=== PATIENT | male | born 1980 | race Caucasian/White ===

== ENCOUNTER 2022-10-06 10:31 | Outpatient (REF) | payer OTHER, SELFPAY ==
[2022-10-06 13:41] LABS: Hematocrit 47.1 % (42.0-52.0); Hemoglobin 15.5 g/dl (14.0-18.0); Mean Corpuscular HGB Conc 32.9 g/dl (31.0-36.0); Mean Platelet Volume 10.8 fL (9.4-12.4); Platelet Count 281 X10*3/uL (160-400); Red Blood Count 5.35 X10*6/uL (4.60-5.80); Red Cell Distribution Width 13.1 % (11.0-16.0); White Blood Count 7.5 X10*3/uL (4.8-10.8)
[2022-10-06 14:06] LABS: Alanine Aminotransferase 106 U/L (0-40); Albumin Level 4.4 g/dL (3.5-5.0); Alkaline Phosphatase 85 U/L (39-117); Anion Gap 10 (12-20); Aspartate Amino Transferase 28 U/L (5-37); Bilirubin Total 0.8 mg/dL (0.0-1.0); Blood Urea Nitrogen 9 mg/dL (9-16); Calcium 9.5 mg/dL (8.4-10.2); Carbon Dioxide 29 mmol/L (22-29); Chloride 107 mmol/L (96-108); Cholesterol 164 mg/dL; Estimated Glomerular Filt Rate > 60; Glucose Fasting 92 mg/dL (60-99); HDL Cholesterol 57 mg/dL; LDL Cholesterol Calculated 97 mg/dl; Potassium 4.6 mmol/L (3.3-5.1); Sodium 141 mmol/L (135-145); Total Protein 6.7 g/dL (6.5-8.0); Triglycerides 52 mg/dL
== END 2022-10-06 10:32 | disposition home or self-care (01) ==
LOC: HO.WFDLDS 10:31
PROVIDERS: Visit Provider Nurse Practitioner Family
DX: Z00.00 Encounter for general adult medical examination without abnormal findings (principal); R42 Dizziness and giddiness
CPT/HCPCS: 36415; 80053; 80061; 85027

== ENCOUNTER 2023-10-10 10:21 | Outpatient (AMB) | payer OTHER, SELFPAY ==
--- NOTE | 2023-10-10 10:24 | A.OFFPC_ITS ---
Vital Signs 10/10/23 10:25 Height 6 ft Weight 231 lb 8 oz BMI 31.4 BP 108/80 Blood Pressure Location Rt brachial Position Sitting Respiration 13 Pulse 79 Pulse Source Pulse Oximeter Temp 97.6 F Temp Source Temporal Artery Scan Pulse Oximetry (%) 99 Oxygen Delivery Method Room Air Intake Visit Reasons: Annual PE Dress Marker Required: No Accompanied by: Self / Same As Patient Allergies No Known Allergies Allergy (Verified 10/10/23 10:56) Medication List - Last Reconciled 10/10/23 by Jin Gomez CNP hydroxyzine HCl 25 mg PO TID PRN 30 days Tobacco use date assessed: 10/10/23 Dental Screening Dental Screen Date: 10/10/23 Did you have a dental visit in the last 12 months?: Yes Did you have a dental problem in the last 6 months where you did not have access to dental care?: No Was dental information given to patient?: Patient has dentist HPI HPI Comments History of Present Illness Details 43-year-old male presents for an extende d physical exam. He prescribed hydroxyzine for anxiety a year ago which he notes he took for a short time and stopped. He did not follow-up as planned 1 month from starting the medication. He notes controlled anxiety and depression symptoms and states that he is able to manage his symptoms by taking a break when they start. He states that his work situation has improved. He states that he did not follow up to connect with a therapist and does not want therapy at this time. He offers no complaints and denies acute symptoms at this time. He states that he is not up-to-date on the flu vaccine and declines the vaccine at this time. Nonsmoker, drink alcohol occasionally, no recreational drug use. 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 1. Little interest or pleasure in doing things: more than half the days 2. Feeling down, depressed, or hopeless: not at all 3. Trouble falling or staying asleep, or sleeping too much: several days 4. Feeling tired or having little energy: more than half the days 5. Poor appetite or overeating: more than half the days 6. Feeling bad about yourself - or that you are a failure or have let yourself or your family down: not at all 7. Trouble concentrating on things, such as reading the newspaper or watching television: nearly every day 8. Moving or speaking so slowly that other people could have noticed. Or the opposite - being so fidgety or restless that you have been moving around a lot more than usual: not at all 9. Thoughts that you would be better off or of hurting yourself in some way: not at all Total score: 10 Depression Screening Interpretation: Positive Depression Screening Follow-up: Existing condition and Declines treatment Depression Screening Done: Yes 91177 - PHQ-9 Billing: Yes Source: Developed by Drs. Tim Simeon, Caity Forman, Chris Trent and colleagues, with an educational charity from [employer]. Thrive Questionnaire Date Thrive assessed: 10/10/23 I am a: Patient What is your living situation today?: I have a steady place to live Within the past 12 months, did the food you bought not last and you didn't have the money to get more?: Never true Within the past 12 months, did you worry whether your food would run out before you got money to buy more?: Never true Do you have trouble paying for medicines?: No Do you have trouble getting transportation to medical appointments?: No Do you have trouble paying your heating and electricity bill?: No Do you have trouble taking care of your child, family member or friend?: No Do you have trouble with day-to-day activities such as bathing, preparing meals, shopping, managing finances, etc.?: No Are you currently unemployed and looking for a job?: No Are you interested in more education?: No Please select the resources that you would like help with: None Currently or been in a relationship where the following occur: no concerns reported THRIVE Score: 0 AUDIT C Alcohol Use Questionnaire (AUDIT-C) 1. How often do you have a drink containing alcohol?: Monthly or less 2. How many drinks containing alcohol do you have on a typical day when you are drinking?: 1 or 2 3. How often do you have six or more drinks on one occasion?: Never Total Score: 1 KAVON-7 AMB Questionnaire KAVON-7 Date KAVON - 7 assessed: 10/10/23 Feeling nervous, anxious, or on edge: 1 = Several days Not being able to stop or control worryin = More than half the days Worrying too much about different things: 3 = Nearly every day Trouble relaxin = More than half the days Being so restless that it is hard to sit still: 1 = Several days Becoming easily annoyed or irritable: 3 = Nearly every day Feeling afraid as if something awful might happen: 2 = More than half the days Total KAVON-7 score (0-4 normal; 5-9 mild; 10-14 moderate; 15-21 severe): 14 Source: Developed by Drs. Tim Simeon, Caity Forman, Chris Trent and colleagues, with an educational charity from [employer]. KAVON-7 Assessment Billing KAVON-7 Assessment Tool: KAVON-7 Assessment 56735 Review of Systems Const Details: Denies chills, Denies fatigue, Denies fever(s), Denies headache(s) and Denies weakness HEENT Denies change in vision, Denies dizziness, Denies headache(s), Denies hearing loss, Denies nasal congestion, Denies sinus pain, Denies sinus pressure and Denies sore throat Card Denies chest pain, Denies lightheadedness, Denies dyspnea and Denies other (palpitations) Resp Denies cough, Denies dyspnea and Denies wheezing GI Denies abdominal pain, Denies melena, Denies hematochezia, Denies change in cynthia wel habits, Denies dyspepsia and Denies nausea Denies hematuria and Denies dysuria Musc Denies abnormal gait, Denies myalgias, Denies arthralgias, Denies numbness and Denies tingling Skin/Breast Denies rash, Denies unusual bruising and Denies wounds Neuro Denies abnormal gait, Denies dizziness, Denies headache(s), Denies memory loss, Denies numbness, Denies Sensory deficit (Neuro), Denies tingling and Denies weakness Psych Denies anxiety, Denies depression and Denies memory loss Endo Denies cold intolerance, Denies fatigue, Denies heat intolerance, Denies polydipsia and Denies polyuria Jann/Lymph Denies easy bleeding and Denies easy bruising Aller/Immun Denies wheezing Physical exam (Primary Care) Vital Signs: Last Vital Signs Temp 97.6 F 10/10/23 10:25 Pulse 79 10/10/23 10:25 Resp 13 10/10/23 10:25 BP 108/80 10/10/23 10:25 Pulse Ox 99 10/10/23 10:25 Oxygen Delivery Method Room Air 10/10/23 10:25 BMI result Body Mass Index 31.4 Tobacco/Smoking Status: Tobacco use Status Tobacco use date assessed 10/10/23 10/10/23 10:36 Patient Tobacco Use Status Former Tobacco user 10/10/23 10:36 Tobacco use type Cigarette 10/10/23 10:36 e-Cigarette/Vaping Use Never Used 10/10/23 10:36 PHQ-9: PHQ-9 Score PHQ-9: Total score 10 10/10/23 10:36 Depression Screening Interpretation: Positive Depression Screening Follow-up: Existing condition and Declines treatment Thrive Assessment: Date of Thrive Assessment Date Thrive assessed 10/10/23 10/10/23 10:36 Currently or been in a relationship where the following occur: no concerns reported Const Other: General: no acute distress, well developed, alert and awake Nutritional Appearance: well nourished Orientation/consciousness: patient oriented x3 HENMT Head: Yes normocephalic and Yes atraumatic Ears: hearing grossly normal bilaterally and TM's normal bilaterally General nose exam: Normal external nose present and Normal nares present Mouth: Normal oral and palatal mucosa present and moist mucous membranes Teeth and gingiva: dentition normal Throat: Yes oropharynx normal Eyes Pupils: Equal, round and reactive pupils present and Pupil accommodation reflex normal EOM: EOMs intact bilaterally Neck Neck: Yes normal visual inspection, Yes no lymphadenopathy and Yes trachea midline Thyroid: Thyroid normal Carotids: no bruits Lymphatic: no lymphadenopathy noted Chest Chest palpation & inspection: normal inspection of the chest Resp Effort & Inspection: normal respiratory effort Auscultation: clear to auscultation bilaterally Cardio Rate: regular rate Rhythm: regular rhythm Heart sounds: S1 normal heart sound present, S2 normal heart sound present, no gallops, no murmurs and no rubs Bruits: no abdominal aortic bruits and no carotid bruits GI Palpation (GI): No Abdominal aortic bruit present, Soft to palpation, nontender, No hepatosplenomegaly present and No Rebound tenderness present Auscultation: normal bowel sounds General: Yes no CVA tenderness Back/Spine/Pelvis Back: no CVA tenderness Cervical Spine: cervical ROM normal and No Cervical spine tenderness Thoracic/Lumbar Spine: thoraco-lumbar ROM normal, No pain with thoraco-lumbar ROM, No thoracic spinal tenderness and No lumbar spinal tenderness Skin General: warm and dry. Normal skin color. Normal skin turgor Lesions: no lesions Rashes: no rashes Trauma: no lacerations or abrasions Wounds: no wounds Nails: normal Neuro General: patient oriented x3, gait normal and CN's II-XI intact bilaterally Cranial nerves: Yes Equal, round and reactive pupils present Cognition (Neuro): normal cognition Gait exam (Neuro): Normal gait present Motor exam (neuro): 5/5 motor strength present throughout Sensory Exam: No Sensory deficit (Neuro) Deep tendon reflexes (DTR's): Right patellar reflex intensity grade: 2+ and Left patellar reflex intensity grade: 2+ Extrem General: Yes normal to inspection, No edema and No calf tenderness Psych Appearance: grossly normal Affect: normal affect Attitude: cooperative Thought process: Normal thought process present Assessment and Plan Assessment & Plan (1) Normal physical examination, routine: Code(s): Z00.00 - Encounter for general adult medical examination without abnormal findings Plan: No significant physical restrictions or limitations noted Healthy diet and routine exercise encouraged Advised to get routine blood work done and follow-up in 2-3 weeks for telehealth visit for labs review Return sooner with symptoms or concerns Verbalized understanding and agreed with treatment plan (2) Anxiety and depression: Code(s): F41.9 - Anxiety disorder, unspecified; F32.A - Depression, unspecified Plan: Reports controlled anxiety and depression symptoms without medication management. He notes that he is able to manage his symptoms PHQ-9 and KAVON-7 scores revealed moderate depression and anxiety He declines psychotherapy at this time Healthy diet and routine exercise encouraged Informed that he may contact his PCP if he changes mind on medication management or referral to a therapist Follow-up with symptoms or concerns Verbalized understanding and agreed with treatment plan (3) Obesity (BMI 30-39.9): Code(s): E66.9 - Obesity, unspecified Plan: He currently weighs 231 lb, BMI is 31.4 Declines referral to dispatch machine runner/dietitian or weight management and notes that he will work on weight management Healthy diet and routine exercise encouraged Advised to inform his PCP if he changes mind on referral to dispatch machine runner or weight management Follow-up with symptoms or concerns Verbalized understanding and agreed with treatment plan (4) Laboratory tests ordered as part of a complete physical exam (CPE): Code(s): Z00.00 - Encounter for general adult medical examination without abnormal findings Plan: Fasting labs ordered as part of a complete physical exam. Advised to fast for at least 10 hours before getting labs drawn. May drink water Verbalized understanding and agreed with treatment plan. Orders: Orders Comprehensive [place]. Panel Fast Today Z00.00 - Encounter for general adult medical examination without abnormal findings TSH reflex Free T4 Today Z00.00 - Encounter for general adult medical examination without abnormal findings Complete Blood Count Auto Diff Today Z00.00 - Encounter for general adult medical examination without abnormal findings Lipid Panel Today Z00.00 - Encounter for general adult medical examination without abnormal findings UA CC w/rflx Micro + Cult Today Z00.00 - Encounter for general adult medical examination without abnormal findings Medications: Discontinued hydroxyzine HCl Discontinued Reason: Patient no longer taking 25 mg PO TID 30 days PRN 90 tabs 1RF anxiety Coding Level of Care Code Est Pt Prev Care 40-64y(10343) Diagnoses Normal physical examination, routine Z00.00 Anxiety and depression F41.9; F32.A Obesity (BMI 30-39.9) E66.9 Laboratory tests ordered as part of a complete physical exam (CPE) Z00.00 Additional Codes KAVON-7 Assessment Billing - KAVON-7 Assessment Tool: KAVON-7 Assessment 84857 ([id number])
[2023-10-10 10:25] VITALS: BP 108/80; PULSE 79; RESP 13; TEMP 36.4; O2SAT 99; BMI 31.4
== END 2023-10-10 12:38 | disposition home or self-care (01) ==
PROVIDERS: PCP Nurse Practitioner Family; Visit Provider Nurse Practitioner Family
DX: Z00.00 Encounter for general adult medical examination without abnormal findings (principal); E66.9 Obesity, unspecified; F41.9 Anxiety disorder, unspecified; Z68.30 Body mass index [BMI] 30.0-30.9, adult; F32.A Depression, unspecified
CPT/HCPCS: 99396

== ENCOUNTER 2023-11-02 07:55 | Outpatient (REF) | payer OTHER, SELFPAY ==
[2023-11-02 11:26] LABS: MANUAL DIFF FLAG NO
[2023-11-02 11:37] LABS: Basophils Percent Auto 0.3 % (0-2); Eosinophils Absolute Auto 0.2 X10*3/uL (0.0-0.4); Eosinophils Percent Auto 3.3 % (0-4); Hematocrit 43.9 % (42.0-52.0); Hemoglobin 14.7 g/dl (14.0-18.0); Imm Gran Abs Auto 0.02 X10*3/uL (0.00-0.03); Imm Gran Pct Auto 0.3 % (0.0-0.4); Lymphocytes Absolute Auto 1.5 X10*3/uL (1.2-4.9); Lymphocytes Percent Auto 24.3 % (20-40); Mean Corpuscular HGB Conc 33.5 g/dl (31.0-36.0); Mean Corpuscular Hemoglobin 29.6 pg (27.0-33.0); Mean Corpuscular Volume 88.5 fL (80.0-98.0); Mean Platelet Volume 10.8 fL (9.4-12.4); Monocytes Absolute Auto 0.7 X10*3/uL (0.1-1.2); Monocytes Percent Auto 10.9 % (2-11); Neutrophils Absolute Auto 3.9 x10*3/uL (2.0-8.3); Neutrophils Percent Auto 60.9 % (45-73); Platelet Count 236 X10*3/uL (160-400); Red Blood Count 4.96 X10*6/uL (4.60-5.80); Red Cell Distribution Width 12.9 % (11.0-16.0); White Blood Count 6.3 X10*3/uL (4.8-10.8)
[2023-11-02 12:15] LABS: Appearance Urine Clear; Color Urine Yellow; Glucose Urine UA Negative (Negative); Leukocyte Esterase Urine Negative (Negative); Nitrite Urine Negative (Negative); PH 6.5 (5.0-9.0); Urine Blood Negative (Negative); Urine Ketones Negative (Negative); Urine Protein Negative (Neg-Trace)
[2023-11-02 12:39] LABS: Alanine Aminotransferase 74 U/L (0-40); Albumin Level 4.2 g/dL (3.5-5.0); Alkaline Phosphatase 71 U/L (39-117); Anion Gap 11 (12-20); Aspartate Amino Transferase 30 U/L (5-37); Bilirubin Total 0.5 mg/dL (0.0-1.0); Blood Urea Nitrogen 10 mg/dL (9-16); Calcium 9.4 mg/dL (8.4-10.2); Carbon Dioxide 27 mmol/L (22-29); Chloride 106 mmol/L (96-108); Cholesterol 141 mg/dL (<200); Estimated Glomerular Filt Rate > 60; Glucose Fasting 108 mg/dL (60-99); HDL Cholesterol 61 mg/dL (>40); LDL Cholesterol Calculated 74 mg/dL (<100); Potassium 4.2 mmol/L (3.3-5.1); Sodium 140 mmol/L (135-145); Total Protein 6.9 g/dL (6.5-8.0); Triglycerides 34 mg/dL (<150)
[2023-11-02 13:02] LABS: TSH reflex Free T4 1.26 uIU/mL (0.32-4.0)
== END 2023-11-02 07:56 | disposition home or self-care (01) ==
LOC: HO.WFDLDS 07:55
PROVIDERS: Visit Provider Nurse Practitioner Family
DX: Z00.00 Encounter for general adult medical examination without abnormal findings (principal)
CPT/HCPCS: 36415; 80053; 80061; 81003; 84443; 85025

== ENCOUNTER 2023-11-06 15:09 | Outpatient (AMB) | payer OTHER, SELFPAY ==
--- NOTE | 2023-11-06 15:08 | A.OFFPC_ITS ---
Intake Visit Reasons: f/u of labs Intake Note: pt is here for follow up labs Allergies No Known Allergies Allergy (Verified 11/06/23 15:18) Medication List - Last Reconciled 11/06/23 by Jin Gomez CNP No Known Home Meds Tobacco use date assessed: 11/06/23 Dental Screening Dental Screen Date: 10/10/23 HPI HPI Comments History of Present Illness Details 43-year-old male presents for a teleheal th visit for review of recent lab work He offers no complaints and denies acute symptoms at this time [facility] Medical History No pertinent past medical history Surgical History No pertinent past surgical history Family History Other Substance abuse Social History Housing: House Patient Tobacco Use Status: Former Tobacco user Tobacco use type: Cigarette e-Cigarette/Vaping Use: Never Used service: Yes Current occupational status: employed 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 Tim Simeon, Caity Forman, Chris Trent and colleagues, with an educational charity from [employer]. Review of Systems Const Details: Const Denies chills, Denies fatigue, Denies fever(s), Denies headache(s) and Denies w eakness ENT Denies dizziness and Denies headache(s) Card Denies chest pain, Denies lightheadedness, Denies dyspnea and Denies other (Palpitations) Resp Denies cough, Denies dyspnea, Denies wheezing and Denies other ( shortness of breath) GI Denies abdominal pain, Denies melena, Denies hematochezia, Denies change in bowel habits, Denies dyspepsia and Denies nausea Denies hematuria and Denies dysuria Musc Denies abnormal gait, Denies myalgias, Denies arthralgias, Denies numbness and Denies tingling Skin/Breast Denies rash, Denies unusual bruising and Denies wounds Neuro Denies abnormal gait, Denies dizziness, Denies headache(s), Denies memory loss, Denies numbness, Denies Sensory deficit (Neuro), Denies tingling and Denies weakness Psych Denies anxiety, Denies depression, Denies memory loss Endo Denies cold intolerance, Denies fatigue, Denies heat intolerance, Denies polydipsia and Denies polyuria Aller/Immun Denies wheezing Physical exam (Primary Care) Tobacco/Smoking Status: Tobacco use Status Tobacco use date assessed 11/06/23 11/06/23 15:09 Patient Tobacco Use Status Former Tobacco user 11/06/23 15:09 Tobacco use type Cigarette 11/06/23 15:09 e-Cigarette/Vaping Use Never Used 11/06/23 15:09 Thrive Assessment: Date of Thrive Assessment Date Thrive assessed 10/10/23 11/06/23 15:09 Const Other: Telehealth visit. No physical exam Telehealth Telehealth Telehealth Platform: Telephone Location of provider rendering services: practice address Location of patient: address on file Patient Identification confirmed using: Name, : Yes Telehealth method: voice only Patient verbally consented to treatment: Yes Patient verbally consented to billing insurance company: Yes Patient informed of any privacy concerns related to visit: Yes Assessment and Plan Assessment & Plan (1) Elevated fasting glucose: Code(s): R73.01 - Impaired fasting glucose Plan: Fasting glucose is slightly elevated, 108. He notes that he fasted for 8 hours instead of required 10-12 hours Will recheck fasting glucose. Encouraged to fast for 10-12 hours, may drink water only, and get blood work done before his next visit Follow-up in 2-3 weeks for telehealth visit for lab review or return sooner with symptoms or concerns Verbalized understanding and agreed with plan (2) Elevated ALT measurement: Code(s): R74.01 - Elevation of levels of liver transaminase levels Plan: ALT is elevated, 74. Previous ALT was 106 AST and alk-phos normal Notes that he drinks alcohol on occasions Likely fatty liver Routine exercise and healthy diet, including low-fat, instructed and encouraged Verbalized understanding and agreed with the plan Orders: Orders Glucose Fasting Today R73.01 - Impaired fasting glucose Coding Level of Care Code Tele Est Pt Level 2 (06617) Diagnoses Elevated fasting glucose R73.01 Elevated ALT measurement R74.01 Time Spent (min) 10
== END 2023-11-06 15:25 | disposition home or self-care (01) ==
LOC: HO.HMGFM 15:09
PROVIDERS: PCP Nurse Practitioner Family; Visit Provider Nurse Practitioner Family
DX: R73.01 Impaired fasting glucose (principal); R74.01 Elevation of levels of liver transaminase levels
CPT/HCPCS: 99441

== ENCOUNTER 2024-01-02 08:27 | Outpatient (REF) | payer OTHER, SELFPAY ==
[2024-01-02 10:51] LABS: Glucose Fasting 110 mg/dL (60-99)
== END 2024-01-02 08:28 | disposition home or self-care (01) ==
LOC: HO.HMGCLDS 08:27
PROVIDERS: PCP Nurse Practitioner Family; Visit Provider Nurse Practitioner Family
DX: R73.01 Impaired fasting glucose (principal)
CPT/HCPCS: 36415; 82947

== ENCOUNTER 2024-01-09 15:06 | Outpatient (AMB) | payer OTHER, SELFPAY ==
--- NOTE | 2024-01-09 08:05 | A.OFFPC_ITS ---
Intake Visit Reasons: followupBloodWork Intake Note: patient here for blood work follow up. Finance Manager Required: No Allergies No Known Allergies Allergy (Verified 01/09/24 15:02) Tobacco use date assessed: 01/09/24 Dental Screening Dental Screen Date: 01/09/24 Did you have a dental visit in the last 12 months?: Yes Did you have a dental problem in the last 6 months where you did not have access to dental care?: No Was dental information given to patient?: Patient has dentist HPI HPI Comments History of Present Illness Details 43-year-old male [facility] review of recent blood work His recent fasting blood glucose is slightly elevated, 108. 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 Tim Simeon, Caity Forman, Chris Trent and colleagues, with an educational charity from [employer]. Review of Systems Const Details: Const Denies chills, Denies fatigue, Denies fever(s), Denies headache(s) and Denies weakness ENT Denies dizziness and Denies headache(s) Card Denies chest pain, Denies lightheadedness, Denies dyspnea and Denies other (Palpitations) Resp Denies cough, Denies dyspnea, Denies wheezing and Denies other ( shortness of breath) GI Denies abdominal pain, Denies melena, Denies hematochezia, Denies change in bowel habits, Denies dyspepsia and Denies nausea Denies hematuria and Denies dysuria Musc Denies abnormal gait, Denies myalgias, Denies arthralgias, Denies numbness and Denies tingling Skin/Breast Denies rash, Denies unusual bruising and Denies wounds Neuro Denies abnormal gait, Denies dizziness, Denies headache(s), Denies memory loss, Denies numbness, Denies Sensory deficit (Neuro), Denies tingling and Denies weakness Psych Denies anxiety, Denies depression, Denies memory loss Endo Denies cold intolerance, Denies fatigue, Denies heat intolerance, Denies polydipsia and Denies polyuria Aller/Immun Denies wheezing Physical exam (Primary Care) Tobacco/Smoking Status: Tobacco use Status Tobacco use date assessed 11/06/23 01/09/24 08:08 Patient Tobacco Use Status Former Tobacco user 01/09/24 08:08 Tobacco use type Cigarette 01/09/24 08:08 e-Cigarette/Vaping Use Never Used 01/09/24 08:08 Thrive Assessment: Date of Thrive Assessment Date Thrive assessed 10/10/23 01/09/24 08:08 Const Other: Telehealth visit. No physical exam Telehealth Telehealth Telehealth Platform: Telephone Location of provider rendering services: practice address Location of patient: address on file Patient Identification confirmed using: Name, : Yes Telehealth method: voice only Patient verbally consented to treatment: Yes Patient verbally consented to billing insurance company: Yes Patient informed of any privacy concerns related to visit: Yes Assessment and Plan Assessment & Plan (1) Elevated fasting glucose: Code(s): R73.01 - Impaired fasting glucose Plan: Recent fasting blood glucose is slightly elevated, 110. Previous fasting blood glucose was also slightly elevated, 108 Will check A1c. Encouraged to get blood work done and follow-up for a telehealth visit in 2 weeks Healthy diet and routine exercise encouraged Return with symptoms or concerns Verbalized understanding and agreed with the treatment plan Orders: Orders Hemoglobin A1c Today R73.01 - Impaired fasting glucose Coding Level of Care Code New Pt Level 3 (15979) Diagnoses Elevated fasting glucose R73.01 Time Spent (min) 10
== END 2024-01-09 16:01 | disposition home or self-care (01) ==
PROVIDERS: PCP Nurse Practitioner Family; Visit Provider Nurse Practitioner Family
DX: R73.01 Impaired fasting glucose (principal)
CPT/HCPCS: 99213

== ENCOUNTER 2024-01-17 09:31 | Outpatient (REF) | payer OTHER, SELFPAY ==
[2024-01-17 14:04] LABS: Estimated Average Glucose 108 mg/dL; Hemoglobin A1c % 5.4 % (<6.0)
== END 2024-01-17 09:32 | disposition home or self-care (01) ==
LOC: HO.HMGCLDS 09:31
PROVIDERS: PCP Nurse Practitioner Family; Visit Provider Nurse Practitioner Family
DX: R73.01 Impaired fasting glucose (principal)
CPT/HCPCS: 36415; 83036

== ENCOUNTER 2024-02-12 15:55 | Outpatient (AMB) | payer OTHER, SELFPAY ==
--- NOTE | 2024-02-12 08:17 | MHC.PC.OV ---
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 Required: No Allergies No Known Allergies Allergy (Verified 02/12/24 15:52) Tobacco use date assessed: 02/12/24 Dental Screening Dental Screen Date: 01/09/24 HPI HPI Comments History of Present Illness Details 43-year-old male presents for a telehealth visit for review of recent blood work He offers no complaints and denies acute symptoms at this time [facility] Medical History No pertinent past medical history Surgical History No pertinent past surgical history Family History Other Substance abuse Social History Housing: House Patient Tobacco Use Status: Former Tobacco user Tobacco use type: Cigarette e-Cigarette/Vaping Use: Never Used service: Yes Current occupational status: employed 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 Tim Simeon, Caity Forman, Chris Trent and colleagues, with an educational charity from [employer]. Review of Systems Const Details: Const Denies chills, Denies fatigue, Denies fever(s), Denies headache(s) and Denies weakness ENT Denies dizziness and Denies headache(s) Card Denies chest pain, Denies lightheadedness, Denies dyspnea and Denies other (Palpitations) Resp Denies cough, Denies dyspnea, Denies wheezing and Denies other ( shortness of breath) GI Denies abdominal pain, Denies melena, Denies hematochezia, Denies change in bowel habits, Denies dyspepsia and Denies nausea Denies hematuria and Denies dysuria Musc Denies abnormal gait, Denies myalgias, Denies arthralgias, Denies numbness and Denies tingling Skin/Breast Denies rash, Denies unusual bruising and Denies wounds Neuro Denies abnormal gait, Denies dizziness, Denies headache(s), Denies memory loss, Denies numbness, Denies Sensory deficit (Neuro), Denies tingling and Denies weakness Psych Denies anxiety, Denies depression, Denies memory loss Endo Denies cold intolerance, Denies fatigue, Denies heat intolerance, Denies polydipsia and Denies polyuria Aller/Immun Denies wheezing Physical exam (Primary Care) Tobacco/Smoking Status: Tobacco use Status Tobacco use date assessed 02/12/24 02/12/24 15:53 Patient Tobacco Use Status Former Tobacco user 02/12/24 08:19 Tobacco use type Cigarette 02/12/24 08:19 e-Cigarette/Vaping Use Never Used 02/12/24 08:19 Thrive Assessment: Date of Thrive Assessment Date Thrive assessed 10/10/23 02/12/24 08:19 Const Other: Telehealth visit. No physical exam Telehealth Telehealth Telehealth Platform: Telephone Location of provider rendering services: practice address Location of patient: address on file Patient Identification confirmed using: Name, : Yes Telehealth method: voice only Patient verbally consented to treatment: Yes Patient verbally consented to billing insurance company: Yes Patient informed of any privacy concerns related to visit: Yes Assessment and Plan Assessment & Plan (1) Elevated fasting glucose: Code(s): R73.01 - Impaired fasting glucose Plan: History of slightly elevated fasting glucose Recent A1c is normal, 5.4% Healthy diet and routine exercise encouraged Advised to schedule his next physical exam for on/after 10/09/2024 Follow-up with symptoms or concerns Verbalized understanding and agreed with the treatment plan Coding Level of Care Code Tele Est Pt Level 3 (94905) Diagnoses Elevated fasting glucose R73.01 Time Spent (min) 10
== END 2024-02-12 16:12 | disposition home or self-care (01) ==
LOC: HO.HMGFM 15:55
PROVIDERS: PCP Nurse Practitioner Family; Visit Provider Nurse Practitioner Family
DX: R73.01 Impaired fasting glucose (principal)
CPT/HCPCS: 99441

== ENCOUNTER 2024-10-15 09:51 | Outpatient (AMB) | payer OTHER, SELFPAY ==
--- NOTE | 2024-10-15 10:05 | MHC.PC.OV ---
Vital Signs 10/15/24 10:11 Height 6 ft Weight 228 lb 4 oz BMI 31.0 BP 128/75 Blood Pressure Location Lt brachial Position Sitting Respiration 16 Pulse 74 Pulse Source Pulse Oximeter Temp 97.6 F Temp Source Oral Pulse Oximetry (%) 100 Oxygen Delivery Method Room Air Intake Visit Reasons: annual Intake Note: patient here for CPE Resource Agent Required: No Allergies No Known Allergies Allergy (Verified 10/15/24 10:33) Medication List - Last Reconciled 10/15/24 by Jin Gomez CNP No Known Home Meds Tobacco use date assessed: 10/15/24 Dental Screening Dental Screen Date: 10/15/24 Did you have a dental visit in the last 12 months?: Yes Did you have a dental problem in the last 6 months where you did not have access to dental care?: No Was dental information given to patient?: Patient has dentist HPI HPI Comments History of Present Illness Details 44-year-old male presents for an extended physical exam. He notes that he anxiety symptoms are generally well controlled. He sometimes takes an old script of Hydroxyzine as needed with some improvement of his anxiety. Acute issue(s) - None Past Medical History - Elevated ALT, myopia, obesity, anxiety, Social History - Former smoker, smoked an average of 10 cigarettes daily for about 9 years, quit over 10 years ago. Does not vape. Drinks 2-3 beers twice monthly. Denies recreational drug use - Has been making healthy dietary choices. Exercises at times. Generally sleep well Health maintenance - Last eye exam was in 03/2024 with Marleni Borges. He will sign a release for his PCP to obtain his ophthalmology record - Last dental visit was last summer. 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 1. Little interest or pleasure in doing things: not at all 2. Feeling down, depressed, or hopeless: not at all 3. Trouble falling or staying asleep, or sleeping too much: not at all 4. Feeling tired or having little energy: not at all 5. Poor appetite or overeating: not at all 6. Feeling bad about yourself - or that you are a failure or have let yourself or your family down: not at all 7. Trouble concentrating on things, such as reading the newspaper or watching television: several days 8. Moving or speaking so slowly that other people could have noticed. Or the opposite - being so fidgety or restless that you have been moving around a lot more than usual: several days 9. Thoughts that you would be better off or of hurting yourself in some way: not at all Total score: 2 Depression Screening Interpretation: Negative Depression Screening Done: Yes 71381 - PHQ-9 Billing: Yes Source: Developed by Drs. Tim Simeon, Caity Forman, Chris Trent and colleagues, with an educational charity from [employer]. Thrive Questionnaire Date Thrive assessed: 10/15/24 I am a: Patient What is your living situation today?: I have a steady place to live Within the past 12 months, did the food you bought not last and you didn't have the money to get more?: Never true Within the past 12 months, did you worry whether your food would run out before you got money to buy more?: Never true Do you have trouble paying for medicines?: No Do you have trouble getting transportation to medical appointments?: No Do you have trouble paying your heating and electricity bill?: No Do you have trouble taking care of your child, family member or friend?: No Do you have trouble with day-to-day activities such as bathing, preparing meals, shopping, managing finances, etc.?: No Are you currently unemployed and looking for a job?: No Are you interested in more education?: Yes Please select the resources that you would like help with: None Currently or been in a relationship where the following occur: No concerns reported THRIVE Score: 0 AUDIT C Alcohol Use Questionnaire (AUDIT-C) 1. How often do you have a drink containing alcohol?: Monthly or less 2. How many drinks containing alcohol do you have on a typical day when you are drinking?: 1 or 2 3. How often do you have six or more drinks on one occasion?: Less than monthly Total Score: 2 Score Reviewed/Action Taken: Yes KAVON-7 AMB Questionnaire KAVON-7 Date KAVON - 7 assessed: 10/15/24 Feeling nervous, anxious, or on edge: 2 = More than half the days Not being able to stop or control worryin = More than half the days Worrying too much about different things: 2 = More than half the days Trouble relaxin = Several days Being so restless that it is hard to sit still: 2 = More than half the days Becoming easily annoyed or irritable: 2 = More than half the days Feeling afraid as if something awful might happen: 0 = Not at all Total KAVON-7 score (0-4 normal; 5-9 mild; 10-14 moderate; 15-21 severe): 11 Source: Developed by Drs. Tim Simeon, Caity Forman, Chris Trent and colleagues, with an educational charity from [employer]. KAVON-7 Assessment Billing KAVON-7 Assessment Tool: KAVON-7 Assessment 51587 Review of Systems Const Details: Denies chills, Denies fatigue, Denies fever(s), Denies headache(s) and Denies weakness HEENT Denies change in vision, Denies dizziness, Denies headache(s), Denies hearing loss, Denies nasal congestion, Denies sinus pain, Denies sinus pressure and Denies sore throat Card Denies chest pain, Denies lightheadedness, Denies dyspnea and Denies other (palpitations) Resp Denies cough, Denies dyspnea and Denies wheezing GI Denies abdominal pain, Denies melena, Denies hematochezia, Denies change in bowel habits, Denies dyspepsia and Denies nausea Denies hematuria and Denies dysuria Musc Denies abnormal gait, Denies myalgias, Denies arthralgias, Denies numbness and Denies tingling Skin/Breast Denies rash, Denies unusual bruising and Denies wounds Neuro Denies abnormal gait, Denies dizziness, Denies headache(s), Denies memory loss, Denies numbness, Denies Sensory deficit (Neuro), Denies tingling and Denies weakness Psych Denies anxiety, Denies depression and Denies memory loss Endo Denies cold intolerance, Denies fatigue, Denies heat intolerance, Denies polydipsia and Denies polyuria Jann/Lymph Denies easy bleeding and Denies easy bruising Aller/Immun Denies wheezing Physical exam (Primary Care) Vital Signs: Last Vital Signs Temp 97.6 F 10/15/24 10:11 Pulse 74 10/15/24 10:11 Resp 16 10/15/24 10:11 BP 128/75 10/15/24 10:11 Pulse Ox 100 10/15/24 10:11 Oxygen Delivery Method Room Air 10/15/24 10:11 BMI result Body Mass Index 31.0 Tobacco/Smoking Status: Tobacco use Status Tobacco use date assessed 10/15/24 10/15/24 10:11 Patient Tobacco Use Status Former Tobacco user 10/15/24 10:07 Tobacco use type Cigarette 10/15/24 10:07 e-Cigarette/Vaping Use Never Used 10/15/24 10:07 PHQ-9: PHQ-9 Score PHQ-9: Total score 2 10/15/24 10:58 Depression Screening Interpretation: Negative Thrive Assessment: Date of Thrive Assessment Date Thrive assessed 10/15/24 10/15/24 10:07 Currently or been in a relationship where the following occur: No concerns reported Const Other: General: no acute distress, well developed, alert and awake Nutritional Appearance: well nourished Orientation/consciousness: patient oriented x3 HENMT Head: Yes normocephalic and Yes atraumatic Ears: hearing grossly normal bilaterally and TM's normal bilaterally General nose exam: Normal external nose present and Normal nares present Mouth: Normal oral and palatal mucosa present and moist mucous membranes Teeth and gingiva: dentition normal Throat: Yes oropharynx normal Eyes Pupils: Equal, round and reactive pupils present and Pupil accommodation reflex normal EOM: EOMs intact bilaterally Neck Neck: Yes normal visual inspection, Yes no lymphadenopathy and Yes trachea midline Thyroid: Thyroid normal Carotids: no bruits Lymphatic: no lymphadenopathy noted Chest Chest palpation & inspection: normal inspection of the chest Resp Effort & Inspection: normal respiratory effort Auscultation: clear to auscultation bilaterally Cardio Rate: regular rate Rhythm: regular rhythm Heart sounds: S1 normal heart sound present, S2 normal heart sound present, no gallops, no murmurs and no rubs Bruits: no abdominal aortic bruits and no carotid bruits GI Palpation (GI): No Abdominal aortic bruit present, Soft to palpation, nontender, No hepatosplenomegaly present and No Rebound tenderness present Auscultation: normal bowel sounds General: Yes no CVA tenderness Back/Spine/Pelvis Back: no CVA tenderness Cervical Spine: cervical ROM normal and No Cervical spine tenderness Thoracic/Lumbar Spine: thoraco-lumbar ROM normal, No pain with thoraco-lumbar ROM, No thoracic spinal tenderness and No lumbar spinal tenderness Skin General: warm and dry. Normal skin color. Normal skin turgor Lesions: no lesions Rashes: no rashes Trauma: no lacerations or abrasions Wounds: no wounds Nails: normal Neuro General: patient oriented x3, gait normal and CN's II-XI intact bilaterally Cranial nerves: Yes Equal, round and reactive pupils present Cognition (Neuro): normal cognition Gait exam (Neuro): Normal gait present Motor exam (neuro): 5/5 motor strength present throughout Sensory Exam: No Sensory deficit (Neuro) Deep tendon reflexes (DTR's): Right patellar reflex intensity grade: 2+ and Left patellar reflex intensity grade: 2+ Extrem General: Yes normal to inspection, No edema and No calf tenderness Psych Appearance: grossly normal Affect: normal affect Attitude: cooperative Thought process: Normal thought process present Immunizations Boostrix Tdap 2.5 Lf unit-8 mcg-5 Lf/0.5 mL intramuscular syringe Performing Provider: Jin Gomez CNP Performing Location: [facility] [place] [facility] Administered by: Margot Newell RN on 10/15/24 10:55 Dose Route Admin Location Dispensed Lot Number Expiration Date NDC Butcher Supervisor 0.5 mL IM Left Deltoid 0.5 mL [id number] 06/28/26 [id number] ClasesD VIS Given Date VIS Provided VIS Publication Date 10/15/24 Single Vaccine 21 Eligibility Eligibility Date Funding Source Not [facility] Eligible 10/15/24 Private Administration Comments: Vaccine administered by senior medical billing specialist Keiko Finch under nurse supervision. Coding Level of Care Code Est Pt Prev Care 40-64y(45976) Diagnoses Normal physical examination, routine Z00.00 Anxiety F41.9 Obesity (BMI 30-39.9) E66.9 Laboratory tests ordered as part of a complete physical exam (CPE) Z00.00 Additional Codes KAVON-7 Assessment Billing - KAVON-7 Assessment Tool: KAVON-7 Assessment [id number] ([id number]) PHQ-9 - 95980 - PHQ-9 Billing: Yes ([id number]) Assessment & Plan Assessment & Plan (1) Normal physical examination, routine: Code(s): Z00.00 - Encounter for general adult medical examination without abnormal findings Category: Medical Plan: No significant functional limitation noted. Continue current treatment regimen. Healthy diet and routine exercise encouraged. Perform lab work or follow-up for telehealth visit in 2-3 weeks. Return sooner with symptoms or concerns. Verbalized understanding and agreed with the plan. (2) Anxiety: Code(s): F41.9 - Anxiety disorder, unspecified Category: Medical Plan: He notes that he anxiety symptoms are generally well controlled. He sometimes takes an old script of Hydroxyzine as needed with some improvement of his anxiety. KAVON-7 score revealed moderate anxiety. PHQ-9 score is normal. Continue current treatment regimen. Routine exercise encouraged. Follow-up with worsening or new symptoms. Verbalized understanding and agreed with the plan. (3) Obesity (BMI 30-39.9): Code(s): E66.9 - Obesity, unspecified Category: Medical Plan: He currently weighs 228 lb, BMI is 31.0. Healthy diet and routine exercise encouraged. May referred to tankage supervisor or weight management as needed. Verbalized understanding and agreed with the plan. (4) Laboratory tests ordered as part of a complete physical exam (CPE): Code(s): Z00.00 - Encounter for general adult medical examination without abnormal findings Category: Medical Plan: Fasting labs ordered as part of a complete physical exam. Advised to fast for at least 10 hours before getting labs drawn. May drink water Verbalized understanding and agreed with treatment plan. Orders: Orders Complete Blood Count Auto Diff Today Z00.00 - Encounter for general adult medical examination without abnormal findings Lipid Panel Today Z00.00 - Encounter for general adult medical examination without abnormal findings Microalbumin, Random (w Creat) Today Z00.00 - Encounter for general adult medical examination without abnormal findings TSH reflex Free T4 Today Z00.00 - Encounter for general adult medical examination without abnormal findings Vitamin D 25-OH Total Today Z00.00 - Encounter for general adult medical examination without abnormal findings TDaP Immunization Today Z23 - Encounter for immunization Comprehensive [place]. Panel Fast Today Z00.00 - Encounter for general adult medical examination without abnormal findings UA CC w/rflx Micro + Cult Today Z00.00 - Encounter for general adult medical examination without abnormal findings
[2024-10-15 10:11] VITALS: BP 128/75; PULSE 74; RESP 16; TEMP 36.4; O2SAT 100; BMI 31.0
--- OUTSIDE RECORDS SUMMARY | 2024-10-15 11:05 | XMS_ITS | Clinical Summary ---
Author Organization [facility] Address [address] [place], [place] [id number] Care Team Providers Care Awning Maker And Installer Name Role Phone Jaquan Carranza MD Primary Care Provider [phone] Allergies Active Allergy Reactions Criticality Noted Date Comments Seasonal 01/26/2017 Medications No known medications Active Problems No known active problems Social History Tobacco Use Types Packs/Day Years Used Date Smoking Tobacco: Never Smokeless Tobacco: Never Tobacco Cessation:Counseling Given: Not Answered Alcohol Use Standard Drinks/Week Comments Yes 0 (1 standard drink = 0.6 oz pur e alcohol) Sex and Gender Information Value Date Recorded Sex Assigned at Male 08/22/2022 10:43 AM EST Gender Identity Male 08/22/2022 10:43 AM EST Sexual Orientation Not on file Job Start Date Occupation Industry Not on file Not on file Not on file Last Filed Vital Signs Vital Sign Reading Time Taken Comments Blood Pressure - - Pulse - - Temperature - - Respiratory Rate - - Oxygen Saturation - - Inhaled Oxygen Concentration - - Weight 99.8 kg (220 lb) 08/22/2022 9:47 AM EST Height 182.9 cm (6') 08/22/2022 9:47 AM EST Body Mass Index 29.84 08/22/2022 9:47 AM EST Plan of Treatment Health Maintenance Due Date Last Done Comments Hepatitis B Vaccines (1 of 3 - 3-dose series) 1981 Hepatitis C Screening 1981 COVID-19 Vaccine (#1) 1981 Depression Screening 1993 Preventative Health Evaluation 1999 DTap / Tdap / Td (1 - Tdap) 2000 Influenza Vaccine (#1) 2024 Pneumococcal Vaccine Aged Out No long er eligible based on patient's age to complete this topic RSV Ped < 20 months Aged Out No longe r eligible based on patient's age to complete this topic Care Teams Awning Maker And Installer Relationship Specialty Start Date End Date Jaquan Carranza MD PCP - General Internal Medicine 08/22/22
== END 2024-10-15 10:54 | disposition home or self-care (01) ==
LOC: HO.HMCFM 09:52
PROVIDERS: PCP Nurse Practitioner Family; Visit Provider Nurse Practitioner Family
DX: Z00.00 Encounter for general adult medical examination without abnormal findings (principal); F41.9 Anxiety disorder, unspecified; E66.9 Obesity, unspecified; Z68.30 Body mass index [BMI] 30.0-30.9, adult; Z23 Encounter for immunization

== ENCOUNTER → 2024-10-15 09:51 | Outpatient (BNVA) | payer OTHER, SELFPAY | PROVIDERS: PCP Nurse Practitioner Family; Visit Provider Nurse Practitioner Family | DX: Z00.00 Encounter for general adult medical examination without abnormal findings (principal); Z23 Encounter for immunization; F41.9 Anxiety disorder, unspecified; E66.9 Obesity, unspecified; Z68.31 Body mass index [BMI] 31.0-31.9, adult | CPT/HCPCS: 90471; 90715; 96127 ==

== ENCOUNTER 2024-10-25 08:52 | Outpatient (REF) | payer OTHER, SELFPAY ==
--- OUTSIDE RECORDS SUMMARY | 2024-10-25 09:07 | XMS_ITS | Clinical Summary ---
Author Organization [facility] Address [address] [place], [place] [id number] Care Team Providers Care Chamfering Machine Operator Name Role Phone Jaquan Carranza MD Primary Care Provider [phone] Allergies Active Allergy Reactions Criticality Noted Date [...] age to complete this topic Care Teams Chamfering Machine Operator Relationship Specialty Start Date End Date Jaquan Carranza MD PCP - General Internal Medicine 08/22/22
[2024-10-25 10:01] LABS: Appearance Urine Clear; Color Urine Yellow; Glucose Urine UA Negative (Negative); Leukocyte Esterase Urine Negative (Negative); Nitrite Urine Negative (Negative); PH 6.5 (5.0-9.0); Specific Gravity - Urine <= 1.005 (1.005-1.025); Urine Blood Negative (Negative); Urine Ketones Negative (Negative); Urine Protein Negative (Neg-Trace)
[2024-10-25 10:01] LABS: MANUAL DIFF FLAG NO
[2024-10-25 10:05] LABS: Basophils Percent Auto 0.4 % (0-2); Eosinophils Absolute Auto 0.1 X10*3/uL (0.0-0.4); Eosinophils Percent Auto 1.6 % (0-4); Hematocrit 44.6 % (42.0-52.0); Hemoglobin 15.1 g/dl (14.0-18.0); Imm Gran Abs Auto 0.01 X10*3/uL (0.00-0.03); Imm Gran Pct Auto 0.1 % (0.0-0.4); Lymphocytes Absolute Auto 1.7 X10*3/uL (1.2-4.9); Lymphocytes Percent Auto 25.1 % (20-40); Mean Corpuscular HGB Conc 33.9 g/dl (31.0-36.0); Mean Corpuscular Hemoglobin 29.7 pg (27.0-33.0); Mean Corpuscular Volume 87.6 fL (80.0-98.0); Mean Platelet Volume 10.5 fL (9.4-12.4); Monocytes Absolute Auto 0.5 X10*3/uL (0.1-1.2); Monocytes Percent Auto 6.9 % (2-11); Neutrophils Absolute Auto 4.6 x10*3/uL (2.0-8.3); Neutrophils Percent Auto 65.9 % (45-73); Platelet Count 245 X10*3/uL (160-400); Red Blood Count 5.09 X10*6/uL (4.60-5.80); White Blood Count 6.9 X10*3/uL (4.8-10.8)
[2024-10-25 10:38] LABS: Alanine Aminotransferase 100 U/L (0-40); Albumin Level 4.4 g/dL (3.5-5.0); Alkaline Phosphatase 72 U/L (39-117); Anion Gap 8 (12-20); Aspartate Amino Transferase 39 U/L (5-37); Blood Urea Nitrogen 14 mg/dL (9-16); Calcium 9.7 mg/dL (8.4-10.2); Carbon Dioxide 26 mmol/L (22-29); Chloride 105 mmol/L (96-108); Cholesterol 156 mg/dL (<200); Estimated Glomerular Filt Rate > 60; Glucose Fasting 100 mg/dL (60-99); HDL Cholesterol 55 mg/dL (>40); LDL Cholesterol Calculated 89 mg/dL (<100); Sodium 135 mmol/L (135-145); TSH reflex Free T4 1.59 uIU/mL (0.32-4.0); Triglycerides 63 mg/dL (<150); Vitamin D 25-OH Total 47.6 ng/mL (>30)
[2024-10-25 10:42] LABS: Creatinine Urine 26.07 mg/dL; Microalbumin Urine < 5.0 mg/L
== END 2024-10-25 08:53 | disposition home or self-care (01) ==
LOC: HO.HMGCLDS 08:52
PROVIDERS: PCP Nurse Practitioner Family; Visit Provider Nurse Practitioner Family
DX: Z00.00 Encounter for general adult medical examination without abnormal findings (principal); Z13.6 Encounter for screening for cardiovascular disorders
CPT/HCPCS: 36415; 80053; 80061; 81003; 82043; 82306; 82570; 84443; 85025

== ENCOUNTER 2024-10-28 13:47 | Outpatient (AMB) | payer OTHER, SELFPAY ==
--- NOTE | 2024-10-28 13:43 | A.OFFPC_ITS ---
Intake Visit Reasons: Telehealth 2-3 wks labs review Intake Note: patient here for telehealth follow up for lab review Industrial Engineer Required: No Allergies No Known Allergies Allergy (Verified 10/28/24 13:43) Tobacco use date assessed: 10/28/24 Dental Screening Dental Screen Date: 10/28/24 Did you have a dental visit in the last 12 months?: Yes Did you have a dental problem in the last 6 months where you did not have access to dental care?: No Was dental information given to patient?: Patient has dentist HPI HPI Comments History of Present Illness Details 44-year-old male presents for review of recent lab results. He drinks alcohol occasionally. He offers no complaints and denies acute symptoms at this time. 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 Cognitive needs: No Hearing needs: No Vision needs: Yes Questionnaire Thrive Questionnaire Date Thrive assessed: 10/08/24 I am a: Patient What is your living situation today?: I have a steady place to live Within the past 12 months, did the food you bought not last and you didn't have the money to get more?: Never true Within the past 12 months, did you worry whether your food would run out before you got money to buy more?: Never true Do you have trouble paying for medicines?: No Do you have trouble getting transportation to medical appointments?: No Do you have trouble paying your heating and electricity bill?: No Do you have trouble taking care of your child, family member or friend?: No Do you have trouble with day-to-day activities such as bathing, preparing meals, shopping, managing finances, etc.?: No Are you currently unemployed and looking for a job?: No Are you interested in more education?: Yes Please select the resources that you would like help with: None Currently or been in a relationship where the following occur: No concerns reported THRIVE Score: 0 KAVON-7 AMB Questionnaire KAVON-7 Date KAVON - 7 assessed: 10/15/24 Source: Developed by Drs. Tim Simeon, Caity Forman, Chris Trent and colleagues, with an educational charity from [employer]. Review of Systems Const Details: Denies chills, Denies fatigue, Denies fever(s), Denies headache(s) and Denies weakness Cardiac Denies chest pain, Denies claudication, Denies leg edema, Denies lightheadedness, Denies palpitations, Denies dyspnea, Denies dyspnea on exertion, Denies orthopnea and Denies other (Loss of consciousness) Resp Denies cough, Denies excessive phlegm production, Denies dyspnea, Denies dyspnea on exertion, Denies snoring and Denies wheezing Physical exam (Primary Care) Tobacco/Smoking Status: Tobacco use Status Tobacco use date assessed 10/28/24 10/28/24 13:45 Patient Tobacco Use Status Former Tobacco user 10/28/24 13:45 Tobacco use type Cigarette 10/28/24 13:45 e-Cigarette/Vaping Use Never Used 10/28/24 13:45 Thrive Assessment: Date of Thrive Assessment Date Thrive assessed 10/08/24 10/28/24 13:45 Currently or been in a relationship where the following occur: No concerns reported Const Other: Patient is alert and oriented x3. Telehealth Telehealth Telehealth Platform: Telephone Location of provider rendering services: practice address Location of patient: address on file Patient Identification confirmed using: Name, : Yes Telehealth method: voice only Patient verbally consented to treatment: Yes Patient verbally consented to billing insurance company: Yes Patient informed of any privacy concerns related to visit: Yes Coding Level of Care Code Tele Est Pt Level 3 (19547) Diagnoses Elevated fasting glucose R73.01 Transaminitis R74.01 Time Spent (min) 15 Assessment & Plan Assessment & Plan (1) Elevated fasting glucose: Code(s): R73.01 - Impaired fasting glucose Category: Medical Plan: Recent fasting glucose is slightly elevated, 100. He is has had history of slightly elevated fasting glucose and normal A1c. Will check A1c and make changes as needed. Advised to schedule his next physical exam no sooner than 10/15/2025. Return sooner with symptoms or concerns. Verbalized understanding and agreed with the plan. (2) Transaminitis: Code(s): R74.01 - Elevation of levels of liver transaminase levels Category: Medical Plan: Recent AST/ALT levels are elevated, 39 and 100 respectively. Likely NAFLD. Healthy diet, including low-fat and routine exercise encouraged. Liver ultrasound ordered. Will review results and make changes as needed. Verbalized understanding and agreed with the plan. Orders: Orders Hemoglobin A1c Today R73.01 - Impaired fasting glucose US abdomen limited Today R74.01 - Elevation of levels of liver transaminase levels
--- OUTSIDE RECORDS SUMMARY | 2024-10-28 14:03 | XMS_ITS | Clinical Summary ---
Author Organization [facility] Address [address] [place], [place] [id number] Care Team Providers Care Program Therapist Name Role Phone Jaquan Carranza MD Primary Care Provider [phone] Allergies Active Allergy Reactions Criticality Noted Date [...] age to complete this topic Care Teams Program Therapist Relationship Specialty Start Date End Date Jaquan Carranza MD PCP - General Internal Medicine 08/22/22
== END 2024-10-28 14:41 | disposition home or self-care (01) ==
LOC: HO.HMCFM 13:47
PROVIDERS: PCP Nurse Practitioner Family; Visit Provider Nurse Practitioner Family
DX: R73.01 Impaired fasting glucose (principal); R74.01 Elevation of levels of liver transaminase levels

== ENCOUNTER → 2024-10-28 13:47 | Outpatient (BNVA) | payer OTHER, SELFPAY | PROVIDERS: PCP Nurse Practitioner Family; Visit Provider Nurse Practitioner Family ==

== ENCOUNTER 2024-12-02 10:21 | Outpatient (REF) | payer OTHER, SELFPAY ==
--- NOTE | ~2024-12-02 | US_ITS ---
CLINICAL HISTORY: R74.01 - Elevation of levels of liver transaminase levels US abdomen limited Comparison: None Findings: The visualized pancreas is normal. The liver is normal in size with increase of echogenicity. There is no intrahepatic bile duct dilatation. The common duct is 2.2 mm in diameter. The gallbladder is normal. There is no sonographic Perkins sign. The main portal vein is antegrade. The right kidney is 11 cm in length. No ascites. IMPRESSION: Increase of echogenicity of the liver favored to represent hepatic steatosis. This document has been electronically signed by: Dieudonne Carlos MD on 12/02/2024 16:43:11
--- OUTSIDE RECORDS SUMMARY | 2024-12-02 11:31 | XMS_ITS | Clinical Summary ---
Author Organization [facility] Address [address] [place], [place] [id number] Care Team Providers Care Adult Education Instructor Name Role Phone Jaquan Carranza MD Primary Care Provider [phone] Allergies Active Allergy Reactions Criticality Noted Date [...] Td (1 - Tdap) 2000 Influenza Vaccine (Season Ended) 2025 Pneumococcal Vaccine Aged Out No long er eligible based on patient's age to complete this topic RSV Ped < 20 months Aged Out No longe r eligible based on patient's age to complete this topic Care Teams Adult Education Instructor Relationship Specialty Start Date End Date Jaquan Carranza MD PCP - General Internal Medicine 08/22/22
[2024-12-02 13:41] LABS: Estimated Average Glucose 117 mg/dL; Hemoglobin A1C 151.8172 umol/L; Hemoglobin A1c % 5.7 % (<6.0)
== END 2024-12-02 10:22 | disposition home or self-care (01) ==
LOC: HO.HMGCX 10:21
PROVIDERS: PCP Nurse Practitioner Family; Visit Provider Nurse Practitioner Family
DX: R74.01 Elevation of levels of liver transaminase levels (principal); R73.01 Impaired fasting glucose
CPT/HCPCS: 36415; 76705; 83036

== ENCOUNTER → 2024-12-02 10:29 | Outpatient (BNV) | payer OTHER, SELFPAY | PROVIDERS: PCP Nurse Practitioner Family; Visit Provider Nuclear Medicine | DX: R74.01 Elevation of levels of liver transaminase levels (principal) | CPT/HCPCS: 76705 ==

== ENCOUNTER 2025-02-07 10:40 | Outpatient (AMB) | payer OTHER, SELFPAY ==
--- NOTE | 2025-02-07 10:43 | A.OFFPC_ITS ---
Vital Signs 02/07/25 10:48 Height 6 ft Weight 228 lb 4 oz BMI 31.0 BP 127/71 Blood Pressure Location Lt brachial Position Sitting Respiration 16 Pulse 87 Pulse Source Pulse Oximeter Temp 98.0 F Temp Source Oral Pulse Oximetry (%) 98 Oxygen Delivery Method Room Air Intake Visit Reasons: abs/sonigram of liver results Intake Note: patient here for results of US of the liver Theoretical Physicist Required: No Allergies No Known Allergies Allergy (Verified 02/07/25 11:16) Medication List - Last Reconciled 02/07/25 by Jin Gomez CNP hydroxyzine HCl 25 mg PO BID PRN Tobacco use date assessed: 02/07/25 Dental Screening Dental Screen Date: 02/07/25 Did you have a dental visit in the last 12 months?: Yes Did you have a dental problem in the last 6 months where you did not have access to dental care?: No Was dental information given to patient?: Patient has dentist HPI HPI Comments History of Present Illness Details 44-year-old male presents for review of recent imaging and lab results. He notes that he drinks alcohol occasionally. He offers no complaints and denies acute symptoms at this time. 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 Cognitive needs: No Hearing needs: No Vision needs: Yes Questionnaire Thrive Questionnaire Date Thrive assessed: 10/08/24 I am a: Patient What is your living situation today?: I have a steady place to live Within the past 12 months, did the food you bought not last and you didn't have the money to get more?: Never true Within the past 12 months, did you worry whether your food would run out before you got money to buy more?: Never true Do you have trouble paying for medicines?: No Do you have trouble getting transportation to medical appointments?: No Do you have trouble paying your heating and electricity bill?: No Do you have trouble taking care of your child, family member or friend?: No Do you have trouble with day-to-day activities such as bathing, preparing meals, shopping, managing finances, etc.?: No Are you currently unemployed and looking for a job?: No Are you interested in more education?: Yes Please select the resources that you would like help with: None Currently or been in a relationship where the following occur: No concerns reported THRIVE Score: 0 KAVON-7 AMB Questionnaire KAVON-7 Date KAVON - 7 assessed: 10/15/24 Source: Developed by Drs. Tim Simeon, Caity Forman, Chris Trent and colleagues, with an educational charity from [employer]. Review of Systems Const Details: Const Denies chills, Denies fatigue, Denies fever(s), Denies headache(s) and Denies weakness ENT Denies dizziness and Denies headache(s) Card Denies chest pain, Denies lightheadedness, Denies dyspnea and Denies other (Palpitations) Resp Denies cough, Denies dyspnea, Denies wheezing and Denies other ( shortness of breath) GI Denies abdominal pain, Denies melena, Denies hematochezia, Denies change in bowel habits, Denies dyspepsia and Denies nausea Denies hematuria and Denies dysuria Musc Denies abnormal gait, Denies myalgias, Denies arthralgias, Denies numbness and Denies tingling Skin/Breast Denies rash, Denies unusual bruising and Denies wounds Neuro Denies abnormal gait, Denies dizziness, Denies headache(s), Denies memory loss, Denies numbness, Denies Sensory deficit (Neuro), Denies tingling and Denies weakness Psych Denies anxiety, Denies depression, Denies memory loss Endo Denies cold intolerance, Denies fatigue, Denies heat intolerance, Denies polydipsia and Denies polyuria Aller/Immun Denies wheezing Physical exam (Primary Care) Vital Signs: Last Vital Signs Temp 98.0 F 02/07/25 10:48 Pulse 87 02/07/25 10:48 Resp 16 02/07/25 10:48 BP 127/71 08/22/25 10:48 Pulse Ox 98 02/07/25 10:48 Oxygen Delivery Method Room Air 02/07/25 10:48 BMI result Body Mass Index 31.0 Tobacco/Smoking Status: Tobacco use Status Tobacco use date assessed 02/07/25 02/07/25 10:50 Patient Tobacco Use Status Former Tobacco user 02/07/25 10:50 Tobacco use type Cigarette 02/07/25 10:50 e-Cigarette/Vaping Use Never Used 02/07/25 10:50 Thrive Assessment: Date of Thrive Assessment Date Thrive assessed 10/08/24 02/07/25 10:50 Currently or been in a relationship where the following occur: No concerns reported Const Other: General: no acute distress and well developed Nutritional Appearance: well nourished Orientation/consciousness: patient oriented x3 HENMT Head: Yes normocephalic and Yes atraumatic Eyes General: appearance normal, both eyes and all related structures Pupils: Equal, round and reactive pupils present EOM: EOMs intact bilaterally Resp Effort & Inspection: normal respiratory effort Auscultation: clear to auscultation bilaterally Cardio Rate: regular rate Rhythm: regular rhythm Heart sounds: S1 normal heart sound present, S2 normal heart sound present, no gallops, no murmurs and no rubs GI Palpation (GI): No Abdominal aortic bruit present, Soft to palpation, nontender, No hepatosplenomegaly present and No Rebound tenderness present Auscultation: normal bowel sounds General: Yes no CVA tenderness Back/Spine/Pelvis Back: no CVA tenderness Cervical Spine: cervical ROM normal and No Cervical spine tenderness Thoracic/Lumbar Spine: thoraco-lumbar ROM normal, No pain with thoraco-lumbar ROM, No thoracic spinal tenderness and No lumbar spinal tenderness Extrem General: Yes normal to inspection, No edema and No calf tenderness Skin General: warm and dry. Normal skin color. Normal skin turgor Neuro General: patient oriented x3, gait normal and no focal neuro deficit Cranial nerves: Yes Equal, round and reactive pupils present Cognition (Neuro): normal cognition Gait exam (Neuro): Normal gait present Sensory Exam: No Sensory deficit (Neuro) Psych Appearance: grossly normal Affect: normal affect Attitude: cooperative Thought process: Normal thought process present Coding Level of Care Code Est Pt Level 3 (16630) Diagnoses Prediabetes R73.03 Hepatic steatosis K76.0 Assessment & Plan Assessment & Plan (1) Prediabetes: Code(s): R73.03 - Prediabetes Category: Medical Plan: Recent A1c is 5.7. Healthy diet including low carbs encouraged. Will monitor A1c annually or as needed. Follow-up as schedule next year for an extended physical exam. Return sooner with symptoms or concerns. Verbalized understanding and agreed with the plan. (2) Hepatic steatosis: Code(s): K76.0 - Fatty (change of) liver, not elsewhere classified Category: Medical Plan: Recent liver ultrasound revealed hepatic steatosis. Weight management encouraged. Advised to limit alcohol intake. Will recheck liver ultrasound annually or as needed. Verbalized understanding and agreed with the plan.
[2025-02-07 10:48] VITALS: BP 127/71; PULSE 87; RESP 16; TEMP 36.7; O2SAT 98; BMI 31.0
== END 2025-02-07 11:23 | disposition home or self-care (01) ==
LOC: HO.HMCFM 10:40
PROVIDERS: PCP Nurse Practitioner Family; Visit Provider Nurse Practitioner Family
DX: R73.03 Prediabetes (principal); K76.0 Fatty (change of) liver, not elsewhere classified